=== PATIENT | female | born 1945 | race Caucasian/White ===

== ENCOUNTER 2023-11-14 16:45 | Inpatient (IN) | payer OTHER ==
[2023-11-14] MEDS ORDERED: HYDROmorphone HCL 2 MG TABLET ONE (18:13)
[2023-11-14] MEDS: HYDROmorphone HCL 2 MG TABLET PO ONE (18:28)
[2023-11-14 18:33] LABS: BASO % 0.3 % (0-2.0); EOS % 1.2 % (0-4.5); HEMATOCRIT 40.4 % (32.4-45.2); HEMOGLOBIN 13.2 GM/dL (10.7-15.3); MCH 29.6 pg (25.7-33.7); MCHC 32.6 g/dl (32.0-36.0); MEAN CELL VOLUME 90.9 fl (80-96); MEAN PLT VOLUME 7.1 fl (7.5-11.1); MONO % 4.2 % (3.8-10.2); NEUT % 84.3 % (42.8-82.8); PLATELET COUNT 376 10^3/uL (134-434); RBC 4.44 M/mm3 (3.60-5.2); RDW 13.8 % (11.6-15.6); WHITE BLOOD COUNT 9.3 K/mm3 (4.0-10.0)
[2023-11-14 18:44] LABS: INR 0.98 (0.83-1.09); PROTHROMBIN TIME (PATIENT) 11.1 SEC (9.7-13.0)
[2023-11-14 18:47] LABS: ACTIVATED PTT 34.1 SECONDS (25.2-36.5)
[2023-11-14 19:02] LABS: POTASSIUM 4.5 mmol/L (3.5-5.1)
[2023-11-14 19:04] LABS: ALBUMIN 3.2 g/dl (3.4-5.0); CALCIUM 10.2 mg/dL (8.5-10.1)
[2023-11-14 19:05] LABS: BLOOD UREA NITROGEN 21.9 mg/dL (7-18)
[2023-11-14 19:07] LABS: CREATININE 0.9 mg/dL (0.55-1.3)
[2023-11-14 19:09] LABS: BILIRUBIN,TOTAL 0.4 mg/dL (0.2-1); TOT PROT 7.8 g/dl (6.4-8.2)
[2023-11-14] MEDS: INSULIN ASPART SLIDING SCALE (NOVOLOG) 1 VIAL SQ SCH (19:46)
[2023-11-14] MEDS: SODIUM CHLORIDE 1,000 ML IV SCH (20:04)
[2023-11-14 20:27] LABS: MAGNESIUM 1.9 mg/dL (1.8-2.4)
[2023-11-14] MEDS ORDERED: VANCOMYCIN 1,000 MG VIAL (RESTRICTED TO ID ONLY) ONE ×2 (20:49→21:06)
[2023-11-14] MEDS ORDERED: GENTAMICIN SO4 80 MG/2 ML VIAL ONE (20:49)
[2023-11-14] MEDS ORDERED: LIDOCAINE 1%/EPI 1:100000 (20 ML MULTI DOSE VIAL) ONE (20:50)
[2023-11-14] MEDS ORDERED: BUPIVACAINE HCL/PF 0.5% (5MG/ML) 10 ML VIAL ONE ×2 (20:50→20:51)
[2023-11-14] MEDS ORDERED: THROMBIN (BOVINE) 5,000 UNIT VIAL TP ONE (20:50)
[2023-11-14] MEDS ORDERED: BUPIVACAINE LIPOSOME/PF (EXPAREL) 266 MG/20 ML VIAL ONE (20:50)
[2023-11-14] MEDS ORDERED: DEXAMETHASONE SOD PHOSPHATE 4 MG/1 ML VIAL IVPUSH PRN (21:01)
[2023-11-14] MEDS ORDERED: ONDANSETRON 4 MG/2 ML VIAL IVPUSH PRN ×2 (21:01)
[2023-11-14] MEDS ORDERED: PROMETHAZINE HCL 25 MG/1 ML VIAL IVPB PRN ×2 (21:01)
[2023-11-14] MEDS ORDERED: ROCURONIUM BROMIDE 50 MG/5 ML SYRINGE ONE (21:05)
[2023-11-14] MEDS ORDERED: PROPOFOL 20 ML ONE (21:05)
[2023-11-14] MEDS ORDERED: ceFAZolin SODIUM 1 GM VIAL ONE (21:06)
[2023-11-14] MEDS ORDERED: SODIUM CHLORIDE 0.9% P/F 10 ML VIAL IJ ONE (21:06)
[2023-11-14] MEDS ORDERED: LIDOCAINE HCL/PF 2% SDV 5ML VIAL ONE (21:06)
[2023-11-14] MEDS ORDERED: LACTATED RINGERS SOLUTION 1,000 ML IV SCH (21:15)
[2023-11-14] MEDS ORDERED: HYDROmorphone *PCA* 10MG/50ML DISP.SYRIN PCA SCH (21:15)
[2023-11-14] MEDS ORDERED: MIDAZOLAM HCL 2 MG/2 ML SINGLE DOSE VIAL ONE (21:40)
[2023-11-14] MEDS ORDERED: FENTANYL CITRATE/PF 50 MCG/ML VIAL ONE ×2 (21:40→22:21)
[2023-11-15] MEDS: INSULIN ASPART SLIDING SCALE (NOVOLOG) 1 VIAL SQ SCH ×3 (00:10→21:46)
[2023-11-15 02:09] LABS: PH,URINE 5.5 (5.0-8.0); URINE APPEARANCE CLEAR; URINE BILIRUBIN NEGATIVE (NEGATIVE); URINE COLOR YELLOW; URINE GLUCOSE (UA) NEGATIVE (NEGATIVE); URINE KETONE NEGATIVE (NEGATIVE); URINE LEUK ESTERASE NEGATIVE (NEGATIVE); URINE NITRITE NEGATIVE (NEGATIVE); URINE PROTEIN NEGATIVE (NEGATIVE)
[2023-11-15] MEDS: HYDROmorphone HCL 2 MG TABLET PO PRN (04:35)
[2023-11-15] MEDS ORDERED: LIDOCAINE HCL 2% JELLY (30 ML/TUBE) TP ONE (05:17)
[2023-11-15] MEDS: LIDOCAINE HCL 2% JELLY (5 ML/TUBE) TP ONE (06:14)
[2023-11-15 07:29] LABS: HEMATOCRIT 38.3 % (32.4-45.2); HEMOGLOBIN 12.6 GM/dL (10.7-15.3); MCH 29.6 pg (25.7-33.7); MCHC 32.8 g/dl (32.0-36.0); MEAN CELL VOLUME 90.2 fl (80-96); MEAN PLT VOLUME 7.7 fl (7.5-11.1); PLATELET COUNT 325 10^3/uL (134-434); RBC 4.25 M/mm3 (3.60-5.2); RDW 13.2 % (11.6-15.6); WHITE BLOOD COUNT 12.9 K/mm3 (4.0-10.0)
[2023-11-15 07:49] LABS: POTASSIUM 3.7 mmol/L (3.5-5.1)
[2023-11-15 07:57] LABS: ALBUMIN 2.9 g/dl (3.4-5.0); CALCIUM 9.8 mg/dL (8.5-10.1)
[2023-11-15 08:00] LABS: CREATININE 0.8 mg/dL (0.55-1.3)
[2023-11-15 08:02] LABS: BILIRUBIN,TOTAL 0.6 mg/dL (0.2-1); TOT PROT 6.9 g/dl (6.4-8.2)
[2023-11-15 09:29] LABS: ANISOCYTOSIS 3+; MACROCYTOSIS 0
[2023-11-15] MEDS ORDERED: PIPERACILLIN/TAZOB 3.375 GM 3.375 GM in DEXTROSE 5%-WATER - 50 ML IVPB SCH (10:15)
[2023-11-15] MEDS ORDERED: VANCOMYCIN 1,000 MG VIAL (RESTRICTED TO ID ONLY) ONE ×2 (10:20→13:55)
[2023-11-15] MEDS ORDERED: THROMBIN (BOVINE) 5,000 UNIT VIAL TP ONE (10:20)
[2023-11-15] MEDS ORDERED: GENTAMICIN SO4 80 MG/2 ML VIAL ONE (10:20)
[2023-11-15] MEDS ORDERED: BUPIVACAINE LIPOSOME/PF (EXPAREL) 266 MG/20 ML VIAL ONE (10:21)
[2023-11-15] MEDS ORDERED: LIDOCAINE 1%/EPI 1:100000 (20 ML MULTI DOSE VIAL) ONE (10:21)
[2023-11-15] MEDS ORDERED: BUPIVACAINE HCL/PF 0.5% (5MG/ML) 10 ML VIAL ONE (10:21)
[2023-11-15] MEDS: PIPERACILLIN/TAZOB 3.375 GM 3.375 GM in DEXTROSE 5%-WATER - 50 ML IVPB SCH (10:37)
[2023-11-15] MEDS: FAMOTIDINE 20 MG/50 ML IVPB 20 MG/50 ML MG IVPB SCH (10:38)
[2023-11-15] MEDS: ACETAMINOPHEN 1000 MG/100 ML BAG IVPB PRN (10:45)
[2023-11-15] MEDS ORDERED: FENTANYL CITRATE/PF 50 MCG/ML VIAL ONE ×5 (11:11→19:02)
[2023-11-15] MEDS ORDERED: ROCURONIUM BROMIDE 50 MG/5 ML SYRINGE ONE ×3 (11:13→15:36)
[2023-11-15] MEDS ORDERED: MIDAZOLAM HCL 2 MG/2 ML SINGLE DOSE VIAL ONE (11:13)
[2023-11-15] MEDS ORDERED: SODIUM CHLORIDE 0.9% P/F 10 ML VIAL IJ ONE ×2 (11:14→11:51)
[2023-11-15] MEDS ORDERED: HYDROmorphone HCl 2 MG/ML VIAL ONE (11:14)
[2023-11-15] MEDS ORDERED: TRANEXAMIC ACID 1000 MG/10 ML VIAL ONE (11:52)
[2023-11-15] MEDS ORDERED: PROPOFOL 20 ML ONE (12:00)
[2023-11-15] MEDS: VANCOMYCIN 1 GM in NS (PRE-DOCKED) 1,000 MG/250 ML (RESTRICTED TO ID ONLY) IVPB ONE (13:40)
[2023-11-15] MEDS: ceFAZolin SODIUM 1 GM VIAL IVPB ONE (13:50)
[2023-11-15] MEDS ORDERED: KETAMINE HCL 200 MG/20 ML VIAL ONE (14:36)
[2023-11-15] MEDS ORDERED: GLYCOPYRROLATE 0.2 MG/1 ML VIAL ONE (14:37)
[2023-11-15] MEDS ORDERED: ACETAMINOPHEN INJECTION 100 ML IVPB ONE (14:38)
[2023-11-15] MEDS: LIDOCAINE 1%/EPI 1:100000 (20 ML MULTI DOSE VIAL) IJ ONE (14:40)
[2023-11-15] MEDS ORDERED: METOPROLOL TARTRATE 5 MG/5 ML VIAL ONE (14:49)
[2023-11-15] MEDS ORDERED: HYDROmorphone *PCA* 10MG/50ML DISP.SYRIN PCA SCH (15:00)
[2023-11-15] MEDS ORDERED: LACTATED RINGERS SOLUTION 1,000 ML IV SCH ×2 (15:00→19:05)
[2023-11-15] MEDS: THROMBIN (BOVINE) 20,000 UNIT VIAL TP ONE (15:03)
[2023-11-15] MEDS: GENTAMICIN SO4 80 MG/2 ML VIAL IVPB ONE (15:04)
[2023-11-15] MEDS: HYDROGEN PEROXIDE 473 ML PO ONE (15:06)
[2023-11-15] MEDS ORDERED: PHENYLEPHRINE HCL 10 MG/1 ML SINGLE DOSE VIAL ONE (15:15)
[2023-11-15] MEDS: BUPIVACAINE LIPOSOME/PF (EXPAREL) 266 MG/20 ML VIAL NR ONE ×2 (15:40→16:47)
[2023-11-15] MEDS: BUPIVACAINE HCL/PF 0.5% (5 MG/ML) 30 ML VIAL IJ ONE (15:41)
[2023-11-15] MEDS ORDERED: SEVOFLURANE 250 ML BTL ONE (15:52)
[2023-11-15] MEDS ORDERED: LABETALOL HCL 20 MG/4 ML VIAL ONE (16:51)
[2023-11-15] MEDS ORDERED: LACTATED RINGERS SOLUTION 1,000 ML/1,000 ML INFUS.BAG IV SCH (19:05)
[2023-11-15] MEDS ORDERED: diphenhydrAMINE HCL 25 MG CAPSULE (FP) PO PRN (19:05)
[2023-11-15] MEDS: HYDROmorphone *PCA* 10MG/50ML DISP.SYRIN PCA SCH (19:17)
[2023-11-15] MEDS: ONDANSETRON 4 MG/2 ML VIAL IVPUSH ONE (19:26)
[2023-11-15] MEDS: DOCUSATE SODIUM 100 MG CAPSULE (FP) PO SCH (21:19)
[2023-11-15] MEDS: ACETAMINOPHEN 325 MG TABLET (FP) PO SCH (21:19)
[2023-11-15] MEDS ORDERED: INSULIN (NOVOLOG) ASPART 100 UNITS/ML 10ML VIAL ONE (21:44)
[2023-11-15] MEDS: ONDANSETRON 4 MG/2 ML VIAL IVPUSH PRN (21:47)
[2023-11-16] MEDS: CEFAZOLIN 1 GM in DEXTROSE 5%-WATER - 50 ML IVPB SCH (01:13)
[2023-11-16] MEDS: PIPERACILLIN/TAZOB 3.375 GM 3.375 GM in DEXTROSE 5%-WATER - 50 ML IVPB SCH (01:46)
[2023-11-16] MEDS ORDERED: PIPERACILLIN/TAZOB 3.375 GM 3.375 GM in DEXTROSE 5%-WATER - 50 ML IVPB SCH (02:00)
[2023-11-16] MEDS: INSULIN ASPART SLIDING SCALE (NOVOLOG) 1 VIAL SQ SCH (07:40)
[2023-11-16 08:15] LABS: HEMOGLOBIN 12.3 GM/dL (10.7-15.3); MCH 29.8 pg (25.7-33.7); MCHC 33.2 g/dl (32.0-36.0); MEAN CELL VOLUME 89.6 fl (80-96); PLATELET COUNT 318 10^3/uL (134-434); RBC 4.14 M/mm3 (3.60-5.2); RDW 13.6 % (11.6-15.6); WHITE BLOOD COUNT 18.5 K/mm3 (4.0-10.0)
[2023-11-16 08:22] LABS: POTASSIUM 3.1 mmol/L (3.5-5.1)
[2023-11-16 08:30] LABS: CALCIUM 9.1 mg/dL (8.5-10.1)
[2023-11-16 08:31] LABS: BLOOD UREA NITROGEN 13.2 mg/dL (7-18)
[2023-11-16 08:34] LABS: CREATININE 0.9 mg/dL (0.55-1.3)
[2023-11-16] MEDS: FERROUS SO4 325 MG TABLET (FP) PO SCH (09:31)
[2023-11-16] MEDS: FAMOTIDINE 20 MG/50 ML IVPB 20 MG/50 ML MG IVPB SCH (09:31)
[2023-11-16] MEDS: FOLIC ACID 1 MG TABLET (FP) PO SCH (09:31)
[2023-11-16] MEDS: METOPROLOL TARTRATE 25 MG TABLET (FP) PO SCH (12:03)
[2023-11-16] MEDS: KCL 10 MEQ IVPB 10 MEQ/100 ML INFUS.BAG IVPB SCH (13:11)
[2023-11-16] MEDS: HYDROmorphone HCl 2 MG/ML VIAL IVPUSH PRN (14:30)
[2023-11-16] MEDS: POTASSIUM CHLORIDE ORAL LIQUID 20 MEQ/15 ML PO ONE (15:46)
[2023-11-16] MEDS: ACETAMINOPHEN 500 MG TABLET (FP) PO SCH (21:34)
[2023-11-17] MEDS: POLYETHYLENE GLYCOL (HEALTHYLAX) 3350 17 GM PACKET PO SCH (09:32)
[2023-11-17] MEDS: FAMOTIDINE/PF 20 MG/2 ML VIAL IVPB SCH (11:35)
[2023-11-18 07:51] LABS: BASO % 0.1 % (0-2.0); EOS % 0.3 % (0-4.5); HEMATOCRIT 35.8 % (32.4-45.2); HEMOGLOBIN 11.8 GM/dL (10.7-15.3); LYMPH % 10.9 % (8-40); MCH 30.2 pg (25.7-33.7); MEAN CELL VOLUME 91.3 fl (80-96); MEAN PLT VOLUME 8.2 fl (7.5-11.1); MONO % 9.2 % (3.8-10.2); NEUT % 79.5 % (42.8-82.8); PLATELET COUNT 262 10^3/uL (134-434); RBC 3.93 M/mm3 (3.60-5.2); RDW 13.6 % (11.6-15.6); WHITE BLOOD COUNT 10.1 K/mm3 (4.0-10.0)
[2023-11-18 08:02] LABS: CALCIUM 8.8 mg/dL (8.5-10.1)
[2023-11-18 08:03] LABS: ALBUMIN 2.3 g/dl (3.4-5.0); BLOOD UREA NITROGEN 12.3 mg/dL (7-18)
[2023-11-18 08:06] LABS: CREATININE 0.6 mg/dL (0.55-1.3)
[2023-11-18 08:07] LABS: BILIRUBIN,TOTAL 0.6 mg/dL (0.2-1); TOT PROT 5.9 g/dl (6.4-8.2)
[2023-11-18] MEDS: POTASSIUM CHLORIDE ORAL LIQUID 20 MEQ/15 ML PO ONE (11:19)
[2023-11-19 07:52] LABS: ALBUMIN 2.3 g/dl (3.4-5.0); BLOOD UREA NITROGEN 13.1 mg/dL (7-18); CALCIUM 8.7 mg/dL (8.5-10.1); MAGNESIUM 1.8 mg/dL (1.8-2.4)
[2023-11-19 07:55] LABS: CREATININE 0.7 mg/dL (0.55-1.3)
[2023-11-19 07:56] LABS: BASO % 0.3 % (0-2.0); HEMATOCRIT 36.1 % (32.4-45.2); HEMOGLOBIN 11.8 GM/dL (10.7-15.3); LYMPH % 17.9 % (8-40); MCH 29.3 pg (25.7-33.7); MCHC 32.7 g/dl (32.0-36.0); MEAN CELL VOLUME 89.6 fl (80-96); MEAN PLT VOLUME 7.8 fl (7.5-11.1); MONO % 9.2 % (3.8-10.2); NEUT % 70.6 % (42.8-82.8); PLATELET COUNT 308 10^3/uL (134-434); RBC 4.03 M/mm3 (3.60-5.2); RDW 13.7 % (11.6-15.6); WHITE BLOOD COUNT 8.4 K/mm3 (4.0-10.0)
[2023-11-19 07:57] LABS: BILIRUBIN,TOTAL 0.5 mg/dL (0.2-1); TOT PROT 5.9 g/dl (6.4-8.2)
[2023-11-19] MEDS: POTASSIUM CHLORIDE ORAL LIQUID 20 MEQ/15 ML PO ONE (11:32)
[2023-11-19] MEDS: MAGNESIUM OXIDE 400 MG TABLET (FP) PO SCH (11:32)
[2023-11-19] MEDS: KETOROLAC TROMETHAMINE 15 MG/ML VIAL IVPUSH SCH (15:08)
[2023-11-19] MEDS ORDERED: CYCLOBENZAPRINE HCL 5 MG TABLET PO SCH (21:00)
[2023-11-19] MEDS: CYCLOBENZAPRINE HCL 5 MG TABLET PO SCH (22:47)
[2023-11-19] MEDS: GABAPENTIN 100 MG CAPSULE PO SCH (22:47)
[2023-11-20 08:12] LABS: BASO % 0.6 % (0-2.0); EOS % 3.6 % (0-4.5); HEMATOCRIT 35.9 % (32.4-45.2); HEMOGLOBIN 11.8 GM/dL (10.7-15.3); LYMPH % 19.6 % (8-40); MCH 29.5 pg (25.7-33.7); MEAN CELL VOLUME 89.5 fl (80-96); MEAN PLT VOLUME 7.9 fl (7.5-11.1); NEUT % 66.2 % (42.8-82.8); PLATELET COUNT 348 10^3/uL (134-434); RBC 4.01 M/mm3 (3.60-5.2); RDW 13.8 % (11.6-15.6); WHITE BLOOD COUNT 8.7 K/mm3 (4.0-10.0)
[2023-11-20 08:25] LABS: ALBUMIN 2.5 g/dl (3.4-5.0); BILIRUBIN,TOTAL 0.5 mg/dL (0.2-1); BLOOD UREA NITROGEN 15.6 mg/dL (7-18); CALCIUM 8.9 mg/dL (8.5-10.1); CREATININE 0.9 mg/dL (0.55-1.3); POTASSIUM 3.4 mmol/L (3.5-5.1)
[2023-11-20] MEDS ORDERED: diphenhydrAMINE HCL 25 MG CAPSULE (FP) PO PRN (21:27)
[2023-11-20] MEDS ORDERED: ONDANSETRON 4 MG/2 ML VIAL IVPUSH PRN (21:27)
[2023-11-20] MEDS: DOCUSATE SODIUM 100 MG CAPSULE (FP) PO SCH (21:38)
[2023-11-20] MEDS: METOPROLOL TARTRATE 25 MG TABLET (FP) PO SCH (21:38)
[2023-11-20] MEDS: HYDROmorphone *PCA* 10MG/50ML DISP.SYRIN PCA SCH (21:42)
[2023-11-20] MEDS: INSULIN ASPART SLIDING SCALE (NOVOLOG) 1 VIAL SQ SCH (22:26)
[2023-11-21] MEDS: ACETAMINOPHEN 500 MG TABLET (FP) PO SCH (02:24)
[2023-11-21] MEDS: FERROUS SO4 325 MG TABLET (FP) PO SCH (07:47)
[2023-11-21] MEDS: FOLIC ACID 1 MG TABLET (FP) PO SCH (10:15)
[2023-11-21] MEDS: MAGNESIUM OXIDE 400 MG TABLET (FP) PO SCH (10:15)
[2023-11-21] MEDS: FAMOTIDINE/PF 20 MG/2 ML VIAL IVPB SCH (10:16)
[2023-11-21] MEDS: POLYETHYLENE GLYCOL (HEALTHYLAX) 3350 17 GM PACKET PO SCH (10:16)
[2023-11-21] MEDS: oxyCODONE HCL 5 MG TABLET PO PRN (16:32)
[2023-11-21] MEDS: CYCLOBENZAPRINE HCL 5 MG TABLET PO SCH (21:34)
[2023-11-21] MEDS: GABAPENTIN 100 MG CAPSULE PO SCH (21:34)
[2023-11-21 23:37] VITALS: BMI 35.2
[2023-11-22 06:05] VITALS: RESP 18
[2023-11-22 08:10] LABS: BASO % 0.4 % (0-2.0); EOS % 1.5 % (0-4.5); HEMATOCRIT 34.9 % (32.4-45.2); HEMOGLOBIN 11.9 GM/dL (10.7-15.3); LYMPH % 12.9 % (8-40); MCH 30.4 pg (25.7-33.7); MCHC 34.1 g/dl (32.0-36.0); MEAN CELL VOLUME 89.3 fl (80-96); MEAN PLT VOLUME 7.8 fl (7.5-11.1); NEUT % 78.2 % (42.8-82.8); PLATELET COUNT 396 10^3/uL (134-434); RDW 13.8 % (11.6-15.6); WHITE BLOOD COUNT 11.3 K/mm3 (4.0-10.0)
[2023-11-22 08:20] LABS: POTASSIUM 3.4 mmol/L (3.5-5.1)
[2023-11-22 08:22] LABS: ALBUMIN 2.8 g/dl (3.4-5.0); BLOOD UREA NITROGEN 12.6 mg/dL (7-18); CALCIUM 9.2 mg/dL (8.5-10.1)
[2023-11-22 08:25] LABS: CREATININE 0.9 mg/dL (0.55-1.3)
[2023-11-22 08:27] LABS: BILIRUBIN,TOTAL 0.5 mg/dL (0.2-1); TOT PROT 6.7 g/dl (6.4-8.2)
[2023-11-22] MEDS: POTASSIUM CHLORIDE ORAL LIQUID 20 MEQ/15 ML PO ONE (11:42)
[2023-11-22 15:51] VITALS: BP 157/94; PULSE 80; TEMP 98.4
[2023-11-22] MEDS ORDERED: APIXABAN 2.5 MG TABLET PO SCH (22:00)
== END 2023-11-22 18:00 | DRG 29 ==
LOC: JER 16:45 → JERBED 19:22 → J4W 23:46 → J5S 11-20 20:49
PROVIDERS: ADMIT Internal Medicine; ATTEND Internal Medicine
PROC: 0RG7071 Fusion of 2 to 7 Thoracic Vertebral Joints with Autologous Tissue Substitute, Posterior Approach, Posterior Column, Open Approach (ICD-10-PCS; principal; 2023-11-15 11:00)
DX: G83.4 Cauda equina syndrome (principal); M48.54XA Collapsed vertebra, not elsewhere classified, thoracic region, initial encounter for fracture; N39.0 Urinary tract infection, site not specified; G95.20 Unspecified cord compression; I10 Essential (primary) hypertension; E11.9 Type 2 diabetes mellitus without complications; E78.5 Hyperlipidemia, unspecified; R32 Unspecified urinary incontinence; R15.9 Full incontinence of feces; E87.6 Hypokalemia; G89.29 Other chronic pain; R20.2 Paresthesia of skin; M43.10 Spondylolisthesis, site unspecified; K21.9 Gastro-esophageal reflux disease without esophagitis; I48.91 Unspecified atrial fibrillation; R29.818 Other symptoms and signs involving the nervous system; B96.20 Unspecified Escherichia coli [E. coli] as the cause of diseases classified elsewhere
CPT/HCPCS: 0241U-QW; 36415; 71045-TC-FY; 72128-TC; 72146-TC; 72148-TC; 76000-TC-FY; 80048; 80053; 81003; 82962; 83735; 84100; 85025; 85027; 85610; 85730; 86850; 86900; 86901; 87040; 87086; 87186; 87635; 88304-TC; 93005; 93010; 93306-TC; 94760; 97116-GP; 97162-GP; 99291; C1713; C1889; J0131

== ENCOUNTER 2023-11-23 18:30 | Emergency (ER) | payer OTHER ==
[2023-11-23] MEDS: LORazepam 2 MG/ML SDV VIAL IVPUSH ONE (18:33)
[2023-11-23] MEDS: SODIUM CHLORIDE 0.9% 500 ML INFUS.BAG IV ONE (19:20)
[2023-11-23] MEDS: ACETAMINOPHEN 1000 MG/100 ML BAG IVPB ONE (19:20)
[2023-11-23 19:25] VITALS: BMI 35.2
[2023-11-23] MEDS: VANCOMYCIN 1,000 MG in DEXTROSE 5%-WATER - 250 ML IVPB ONE (19:30)
[2023-11-23] MEDS ORDERED: VANCOMYCIN 1 GRAM (PRE-DOCKED) 1,000 MG/250 ML BAG IVPB ONE (19:32)
[2023-11-23] MEDS ORDERED: ACETAMINOPHEN INJECTION 100 ML IVPB ONE (19:32)
[2023-11-23 19:59] LABS: INR 1.08 (0.83-1.09); PROTHROMBIN TIME (PATIENT) 12.2 SEC (9.7-13.0)
[2023-11-23 20:02] LABS: ACTIVATED PTT 27.4 SECONDS (25.2-36.5)
[2023-11-23 20:05] LABS: VENOUS BASE EXCESS -3.2 mmol/L (-2-2); VENOUS O2 SATURATION 60.6 % (70-80)
[2023-11-23 20:18] LABS: CHLORIDE 97 mmol/L (98-107); POTASSIUM 4.3 mmol/L (3.5-5.1); SODIUM 133 mmol/L (136-145)
[2023-11-23 20:20] LABS: LACTIC ACID 4.4 mmol/L (0.4-2.0)
[2023-11-23] MEDS: levETIRAcetam 500 MG/5 ML INJECTION VIAL IVPB ONE (20:20)
[2023-11-23 20:21] LABS: ALBUMIN 3.3 g/dl (3.4-5.0); ANION GAP 9 mmol/L (4-13); CO2 26 mmol/L (21-32)
[2023-11-23 20:21] LABS: VENOUS PCO2 78.5 mmHg (38-52); VENOUS PH 7.164 (7.310-7.410)
[2023-11-23 20:23] LABS: BLOOD UREA NITROGEN 13.9 mg/dL (7-18); GLUCOSE,RANDOM 270 mg/dL (74-106)
[2023-11-23 20:25] LABS: CREATININE 1.4 mg/dL (0.55-1.3); SGOT/AST 22 U/L (15-37)
[2023-11-23 20:26] LABS: CHOLESTEROL 229 mg/dL (50-200); SGPT/ALT 12 U/L (13-61); TOT PROT 7.9 g/dl (6.4-8.2)
[2023-11-23 20:27] LABS: BILIRUBIN,TOTAL 0.7 mg/dL (0.2-1); LDL CHOLESTEROL (ONLY SJRH) 139 mg/dL (5-100)
[2023-11-23 20:29] LABS: ALK PHOS 189 U/L (45-117)
[2023-11-23] MEDS ORDERED: levETIRAcetam 500 MG/5 ML INJECTION VIAL IVPB ONE (20:29)
[2023-11-23 20:30] LABS: HDL CHOLESTEROL 62 mg/dL (40-60)
[2023-11-23 20:33] LABS: EPI CELLS 4 /uL (0-25.1); HYALINE CASTS 1 /uL (0-3.1); URINE APPEARANCE CLOUDY; URINE BACTERIA >9,000 /uL (0-1359); URINE BILIRUBIN NEGATIVE (NEGATIVE); URINE COLOR YELLOW; URINE GLUCOSE (UA) NEGATIVE (NEGATIVE); URINE KETONE NEGATIVE (NEGATIVE); URINE LEUK ESTERASE TRACE (NEGATIVE); URINE NITRITE NEGATIVE (NEGATIVE); URINE PROTEIN 3+ (NEGATIVE); URINE RBC 42 /uL (0-23.9); URINE WBC 1291 /uL (0-25.8)
[2023-11-23 20:48] LABS: HEMATOCRIT 38.2 % (32.4-45.2); HEMOGLOBIN 12.4 GM/dL (10.7-15.3); MCH 29.8 pg (25.7-33.7); MCHC 32.4 g/dl (32.0-36.0); MEAN CELL VOLUME 91.9 fl (80-96); MEAN PLT VOLUME 8.4 fl (7.5-11.1); PLATELET COUNT 516 10^3/uL (134-434); RBC 4.15 M/mm3 (3.60-5.2); RDW 14.4 % (11.6-15.6); WHITE BLOOD COUNT 17.8 K/mm3 (4.0-10.0)
[2023-11-23] MEDS: PIPERACILLIN/TAZOB 4.5 GM 4.5 GM in DEXTROSE 5%-WATER 100 ML IVPB ONE (21:39)
[2023-11-23] MEDS ORDERED: METOPROLOL TARTRATE 5 MG/5 ML VIAL ONE (22:19)
[2023-11-23] MEDS: METOPROLOL TARTRATE 5 MG/5 ML VIAL IVPUSH ONE (22:22)
[2023-11-23 22:25] VITALS: RESP 24; TEMP 99.5
[2023-11-24 02:26] VITALS: BP 144/84; PULSE 122
== END 2023-11-24 01:18 | disposition short-term general hospital (02) ==
LOC: JER 18:30
PROC: 3E03329 Introduction of Other Anti-infective into Peripheral Vein, Percutaneous Approach (ICD-10-PCS; principal; 2023-11-23)
PROC: 3E03329 Introduction of Other Anti-infective into Peripheral Vein, Percutaneous Approach (ICD-10-PCS; 2023-11-23)
PROC: 3E03329 Introduction of Other Anti-infective into Peripheral Vein, Percutaneous Approach (ICD-10-PCS; 2023-11-23)
PROC: 3E030GC Introduction of Other Therapeutic Substance into Peripheral Vein, Open Approach (ICD-10-PCS; 2023-11-23)
PROC: 3E030GC Introduction of Other Therapeutic Substance into Peripheral Vein, Open Approach (ICD-10-PCS; 2023-11-23)
PROC: 3E030GC Introduction of Other Therapeutic Substance into Peripheral Vein, Open Approach (ICD-10-PCS; 2023-11-23)
PROC: 3E030GC Introduction of Other Therapeutic Substance into Peripheral Vein, Open Approach (ICD-10-PCS; 2023-11-23)
DX: A41.9 Sepsis, unspecified organism (principal); R41.82 Altered mental status, unspecified; N39.0 Urinary tract infection, site not specified; R31.9 Hematuria, unspecified; I48.0 Paroxysmal atrial fibrillation; Z20.822 Contact with and (suspected) exposure to COVID-19
CPT/HCPCS: 0241U-QW; 70450-TC; 70496-TC; 70498-TC; 71045-TC-FY; 80053; 80061; 81003; 82140; 82550; 82803; 83036; 83605; 84484; 85027; 85610; 85730; 86850; 86900; 86901; 87040; 87086; 87186; 93005; 93010; 99291; J0131